=== PATIENT | male | born 1995 | race Hispanic/Latino ===

== ENCOUNTER 2021-11-24 14:50 | Outpatient (CLI) | payer MEDICARE ==
[2021-11-24 15:26] LABS: Basophils % (Auto) 0.7 % (0.0-1.8); Eosinophils % (Auto) 0.8 % (0.0-4.3); Lymphocytes # (Auto) 1.4 K/mm3 (1.2-5.4); Lymphocytes % (Auto) 31.1 % (13.4-35.0); Mean Corpuscular HGB Conc 33 % (32-34); Mean Corpuscular Volume 92 fl (84-94); Monocytes # (Auto) 0.5 K/mm3 (0.0-0.8); Monocytes % (Auto) 10.8 % (0.0-7.3); Platelet Count 249 K/mm3 (140-440); Red Blood Count 4.92 M/mm3 (3.65-5.03); Red Cell Distribution Width 12.4 % (13.2-15.2)
[2021-11-24 15:39] LABS: Alanine Aminotransferase 15 units/L (7-56); BUN/Creatinine Ratio 15; Blood Urea Nitrogen 17 mg/dL (9-20); Hemolysis Index 8
== END 2021-11-24 14:51 | disposition home or self-care (01) ==
LOC: LAB 14:50
PROVIDERS: ATTEND Specialist
DX: G40.211 Localization-related (focal) (partial) symptomatic epilepsy and epileptic syndromes with complex partial seizures, intractable, with status epilepticus (principal)
CPT/HCPCS: 36415; 80053; 85025